=== PATIENT | male | born 1985 | race Caucasian/White ===

== ENCOUNTER 2016-05-27 15:04 | Emergency (ER) | payer SELFPAY ==
[2016-05-27] MEDS ORDERED: Amoxicillin-Clav 875-125 mg Tab PO STA (15:30)
[2016-05-27] MEDS ORDERED: Bacitracin 500 Units/gm Oint Foilpak UD TOP ONE (15:30)
[2016-05-27] MEDS ORDERED: Amoxicillin-Clav 875-125 mg Tab PO ONE (15:35)
[2016-05-27] MEDS ORDERED: Bacitracin 500 Units/gm Oint Foilpak UD ONE (15:35)
--- NOTE | 2016-05-27 15:41 | C.PDOC ---
History Of Present Illness Pt states he was walking by a small dog on a leash on the sidewalk when it bit him on his left leg. The dog's rn liaison did not stop and left. Time Seen by Provider: 05/27/16 15:22 Chief Complaint (Nursing): Bite History Per: Patient Onset/Duration Of Symptoms: Hrs (2) Current Symptoms Are (Timing): Still Present Location Of Injury: Left: Leg Severity: Mild Additional History Per: Prior Records - Animal Bite Description Of The Attack: Approached Animal (Walking past dog) Description Of The Animal: Other (Stranger's pet) Reports Animal Appears: Well Past Medical History Reviewed: Historical Data, Nursing Documentation, Vital Signs Vital Signs: Last Vital Signs Temp 98.3 F 05/27/16 15:08 Pulse 55 L 05/27/16 15:08 Resp 18 05/27/16 15:08 BP 154/79 H 05/27/16 15:08 Pulse Ox 96 05/27/16 15:08 - Medical History PMH: No Chronic Diseases Surgical History: No Surg Hx Family History: States: Unknown Family Hx - Social History Hx Alcohol Use: No Hx Substance Use: No - Immunization History Hx Tetanus Toxoid Vaccination: No Hx Influenza Vaccination: No Hx Pneumococcal Vaccination: No Review Of Systems Except As Marked, All Systems Reviewed And Found Negative. Constitutional: Negative for: Fever, Weakness Cardiovascular: Negative for: Chest Pain Respiratory: Negative for: Shortness of Breath Gastrointestinal: Negative for: Vomiting, Abdominal Pain Musculoskeletal: Negative for: Neck Pain Neurological: Negative for: Weakness, Numbness, Seizures, Altered Mental Status Physical Exam - Physical Exam Appears: Non-toxic, No Acute Distress Skin: Normal Color, Warm, Dry Head: Atraumatic, Normacephalic Eye(s): bilateral: PERRL, EOMI Neck: Normal ROM, Supple Extremity: Normal ROM, Other (small abrasions on left leg. No puncture wounds apparant. ) Neurological/Psych: Oriented x3, Normal Motor, Normal Sensation ED Course And Treatment O2 Sat by Pulse Oximetry: 96 Pulse Ox Interpretation: Normal Disposition Counseled Patient/Family Regarding: Diagnosis, Need For Followup, Rx Given - Disposition Referrals: Cj Hansen [Staff Provider] - Disposition: HOME/ ROUTINE Disposition Time: 15:42 Condition: STABLE Additional Instructions: Follow up with the police department. Follow up with your primary doctor. Return to the ER if you develop redness, swelling, pus drainage, fever, worsening of symptoms or if you have any other concerns. Prescriptions: Amoxicillin/Clavulanate [Augmentin 875 MG-125 MG] 1 tab PO BID #10 tab Instructions: Animal Bite (ED) - Clinical Impression Clinical Impression: Dog bite of left lower leg
[2016-05-27 16:04] VITALS: BP 141/80; PULSE 60; RESP 16; TEMP 98.2; O2SAT 100
== END 2016-05-27 16:19 | disposition home or self-care (01) ==
LOC: C.ER 15:04
DX: S80.872A Other superficial bite, left lower leg, initial encounter (principal); W54.0XXA Bitten by dog, initial encounter; Y92.414 Local residential or business street as the place of occurrence of the external cause